=== PATIENT | female | born 1925 | race Caucasian/White ===

== ENCOUNTER 2016-03-26 10:16 | Outpatient (CLI) ==
--- NOTE | 2016-03-26 11:45 | DEXA ---
EXAM: Dual-Energy X-ray Absorptiometry (DXA) INDICATION: Osteoporosis. COMPARISON: 02/16/2011. FINDINGS: Lumbar Spine: BMD: 1.000 T-Score: -1.5 Z-Score: 1.1 Total left Hip: BMD: 0.631 T-Score: -3.0 Z-Score: -0.1 Total right Hip: BMD: 0.604 T-Score: -3.2 Z-Score: -0.3 Total mean Hip: BMD: 0.618 T-Score: -3.1 Z-Score: -0.2 Interval lumbar spine and total hip mean BMD change of 8.3% and -4.5% respectively. FRACTURE RISK: In this individual, the estimated 10-year risk for: Hip fracture is 8.3 % Major osteoporotic fracture is 21.2 %. IMPRESSION: Lumbar spine T-score consistent with osteopenia. Bilateral hip T-scores consistent with osteoporosis.
== END 2016-03-26 10:17 | disposition home or self-care (01) ==
LOC: RAD 10:16
PROVIDERS: ATTEND Family Medicine
DX: M81.0 Age-related osteoporosis without current pathological fracture (principal)

== ENCOUNTER → 2016-04-25 | Outpatient (POV) | LOC: OUTPT 00:01 | PROVIDERS: ATTEND Otolaryngology | DX: H91.90 Unspecified hearing loss, unspecified ear (principal) | CPT/HCPCS: 92557; 92567 ==

== ENCOUNTER 2016-06-28 19:34 | Inpatient (IN) ==
[2016-06-28 19:42] VITALS: BMI 19.5
[2016-06-28] MEDS ORDERED: LASIX IVP STA (19:55)
[2016-06-28] MEDS ORDERED: LOPRESSOR IVP STA (19:56)
[2016-06-28 20:10] LABS: BASOPHILS % (AUTO) 0.3 % (0.0-3.0); EOSINOPHILS # (AUTO) 0.6 K/ul (0.0-0.7); EOSINOPHILS % (AUTO) 6.1 % (0.0-7.0); HEMOGLOBIN 13.5 g/dl (12.0-16.0); IMMATURE GRANULOCYTE % (AUTO) 0.4 % (0.0-5.0); LYMPHOCYTES # (AUTO) 0.6 K/uL (0.60-3.4); LYMPHOCYTES % (AUTO) 6.6 (10.0-50.0); MEAN CORPUSCULAR HGB CONC 33.8 (31.8-35.4); MEAN CORPUSCULAR VOLUME 91.7 fl (81.0-99.0); MONOCYTES # (AUTO) 0.6 K/uL (0.4-2.0); MONOCYTES % (AUTO) 6.3 (0-10); NEUTROPHILS # (AUTO) 7.5 K/ul (2.0-6.9); NEUTROPHILS % (AUTO) 80.3; PLATELET COUNT 179 10^3/uL (140-440); RED BLOOD COUNT 4.36 10^6/ul (4.20-5.40); WHITE BLOOD COUNT 9.36 K/ul (4.6-10.2)
[2016-06-28 20:42] LABS: ABG PCO2 34.4 mmHg (35-45); ABG PH 7.396 (7.35-7.45)
[2016-06-28 20:43] LABS: ABG BASE EXCESS -4 (-2.0-2.0); ABG HCO3 21.1 (22.0-26.0); ABG TCO2 22 (22.0-28.0)
--- NOTE | 2016-06-28 20:45 | CT ---
Exam: CT thorax without contrast. Clinical indication: Shortness of breath. TECHNIQUE: Axial unenhanced CT images of the thorax were obtained followed by coronal and sagittal reformats. There are no prior studies available for comparison. Findings: There is moderate to severe underlying centrilobular emphysema. Within all lobes of the lungs there are areas of cylindrical bronchiectasis. Also within the cork tipper oinferior aspect of the right middle lobe there is some bronchiectasis associate with scarring and v olume loss. Within the posterior aspect of the right lower lobe, axial image number 35, there is a 0.7 x 0.5 cm noncalcified indeterminate pulmonary nodule. At the base of the left lung there is a 0.5 cm noncalc ified pulmonary nodule, best appreciated on axial image number 47. There is some heterogeneous irre gular opacities within the right lower lobe. The remainder the pulmonary parenchyma is unremarkable . There is no pleural abnormality. There are no enlarged axillary lymph nodes, by size criteria. There is a right paratracheal/precarinal lymph node measuring 1.3 cm in short axis dimension. There are no other definite enlarged mediastinal lymph nodes. There are calcified mediastinal lymph node s, consistent with old healed granulomatous disease. There are extensive coronary artery calcifications. There are punctate splenic calcifications consistent with old healed granulomatous disease. The rem ainder the visualized portions of the upper abdomen are unremarkable. There is severe thoracic kyphosis. The remainder of the visualized bony structures are unremarkable . Impression: 1. Moderate to severe centrilobular emphysema. 2. Areas of cylindrical bronchiectasis within all lobes bilaterally. 3. Two left lower lobe noncalcified indeterminate pulmonary nodules. According to the new 2017 Fle ischner Society criteria a follow-up CT in 6-12 months time is recommended to confirm stability. 4. Single mildly enlarged mediastinal lymph node, likely reactive. This can be followed up at the same time. 5. Coronary artery calcifications.
[2016-06-28 20:47] LABS: ALBUMIN 3.7 g/dL (3.4-5.0); ALBUMIN/GLOBULIN RATIO 1.12; ANION GAP 14.1; BILIRUBIN,TOTAL 0.44 mg/dL (0.00-1.20); CALCIUM 9.4 mg/dL (8.2-10.2); CREATININE 1.1 mg/dL (0.60-1.30); POTASSIUM 4.1 mmol/L (3.5-5.10)
[2016-06-28] MEDS ORDERED: XOPENEX 1.25 MG NEB STA (20:47)
[2016-06-28 21:06] LABS: TROPONIN I 0.023 ng/ml (0.0000-0.4000)
--- NOTE | 2016-06-28 21:10 | ED.PDOC ---
General ED Provider: Dr. KAVITHA BATEMAN-ER Chief Complaint: Shortness of Air Stated Complaint: cesilia been sob since this am.. Time Seen by Physician: 19:40 Mode of Arrival: Walk-In Information Source: Patient Exam Limitations: No limitations Primary Care Provider: GERMAINE ROBINS Nursing and Triage Documentation Reviewed and Agree: Yes Respiratory Complaint Exam - Shortness of Air Complaint/Exam Onset/Duration: 48hrs Symptoms Are: Still present Timing: Constant Initial Severity: Mild Current Severity: Moderate Character: Reports: Dyspnea at rest, Dyspnea on exertion Aggravating: Reports: Deep breaths Alleviating: Reports: Bronchodilators Associated Signs and Symptoms: Reports: Cough, Rapid breathing. Denies: Wheezing, Chest pain with cough, Chest pain, Fever, Chills, Diaphoresis, Nasal congestion, Dizziness, Calf pain, Calf swelling, Edema, Labored breathing, Decreased intake History of Healthcare-Acquired Pneumonia: No Cardiac Risk Factors: Reports: CAD Pseudomonas Risk Factors: Reports: None Tuberculosis Risk Factors: Reports: None Home Oxygen Use: No Recent Stress Test: No Recent Echo/LV Function: No Respiratory Distress: None Stridor Present: No Tracheal Deviation: No Subcutaneous Emphysema: No Accessory Muscle Use: Yes Diminished Breath Sounds: Yes Prolonged Expiratory Phase: No Unable to Speak Full Sentences: No Fatigue: No Leg Swelling: No Edmund's Sign Present: No Grunting Respirations: No Kussmaul Respirations: No Differential Diagnoses: Asthma, CHF, COPD Exacerbation, NC Quality Indicator For Non-Traumatic Chest Pain/Syncope: EKG Performed Review of Systems - Review Of Systems Constitutional: Reports: No symptoms Eyes: Reports: No symptoms Ears, Nose, Mouth, Throat: Reports: No symptoms Respiratory: Reports: Cough, Short of air Cardiac: Reports: No symptoms GI: Reports: No symptoms : Reports: No symptoms Musculoskeletal: Reports: No symptoms Skin: Reports: No symptoms Neurological: Reports: No symptoms Endocrine: Reports: No symptoms Hematologic/Lymphatic: Reports: No symptoms All Other Systems: Reviewed and Negative Past Medical History - Past Medical History Endocrine: Reports: Other Cardiovascular: Reports: Other Respiratory: Reports: Other Hematological: Reports: Other Gastrointestinal: Reports: Other Genitourinary: Reports: Other Neuro/Psych: Reports: Other Musculoskeletal: Reports: Other Cancer: Reports: Other Last Menstrual Period: unknown - Surgical History General Surgical History: Reports: Unknown - Family History Family History: Reports: Unknown - Social History Smoking Status: Former smoker Hx Substance Use: No Alcohol Screening: None Lives: With family Physical Exam - Physical Exam Appearance: Well-appearing, No pain distress, Well-nourished Eyes: RAKAN, EOMI, Conjunctiva clear ENT: Ears normal, Nose normal, Oropharynx normal Neck: Supple Respiratory: Airway patent, Breath sounds diminished Cardiovascular: RRR, Pulses normal, No rub, No murmur GI/: Soft, Nontender, No masses, Bowel sounds normal, No Organomegaly Musculoskeletal: Normal strength, ROM intact, No edema, No calf tenderness Skin: Warm, Dry, Normal color Neurological: Sensation intact, Motor intact, Reflexes intact, Cranial nerves intact, Alert, Oriented Psychiatric: Affect appropriate, Mood appropriate, Anxious Interpretation - Radiology Interpretation Radiology Interpretation By: Radiologist Radiology Results: Positive Exam Interpreted: CT Scan ("moder to severe emphysema") Re-Evaluation - Re-Evaluation Time of Re-Evaluation: 21:11 Status: Improved Vital Signs Stable: Yes Pain Level: 0 Appearance: NAD Lungs: Clear Skin: Warm and Dry Neuro: Alert and Oriented X3 CV: RRR Physician Notification - Case Discussed Physician Notified: d roliver Time of Notification: 21:16 Critical Care Note - Critical Care Note Total Time (mins): 0 Course - Course Hematology/Chemistry: 06/28/16 20:03 06/28/16 20:03 Orders, Labs, Meds: Lab Review 06/28/16 06/28/16 19:54 20:03 WBC 9.36 RBC 4.36 Hgb 13.5 Hct 40.0 MCV 91.7 MCH 31.0 MCHC 33.8 RDW Coeff of Angie 13.0 Plt Count 179 Immature Gran % (Auto) 0.4 Neut % (Auto) 80.3 Lymph % (Auto) 6.6 L [place] % (Auto) 6.3 Eos % (Auto) 6.1 Baso % (Auto) 0.3 Immature Gran # (Auto) 0.0 Neut # 7.5 H Lymph # 0.6 [place] # 0.6 Eos # 0.6 Baso # 0.0 D-Dimer (Manual) 860.06 Puncture Site Rrad O2 Saturation 90.0 L ABG pH 7.396 ABG pCO2 34.4 L ABG pO2 59.0 L* ABG HCO3 21.1 L ABG Total CO2 22 ABG Base Excess -4 L Vinayak Test + FiO2 % 21.0 Sodium 140 Potassium 4.1 Chloride 108 H Carbon Dioxide 22 L Anion Gap 14.1 BUN 33 H Creatinine 1.10 Estimated GFR (MDRD) 47.00 BUN/Creatinine Ratio 30.00 Glucose 106 Calcium 9.4 Total Bilirubin 0.44 AST 15 ALT 10 L Alkaline Phosphatase 55 Total Creatine Kinase 30 Troponin I 0.0230 B-Natriuretic Peptide 36 Total Protein 7.0 Albumin 3.7 Globulin 3.3 Albumin/Globulin Ratio 1.12 TSH 1.545 Orders Category Date Time Status ABG DRAW REQUEST Stat CARDIO 06/28/16 19:54 Completed EKG-(ED ONLY) Stat CARDIO 06/28/16 19:54 Completed NEBULIZER TREATMENT Stat CARDIO 06/28/16 20:47 Completed Bit Welder [ED A/C TECH APPLIED] .ONCE EMERGENCY 06/28/16 19:56 Active IV [ED IV/MEDIPORT/POWERPORT] .ONCE EMERGENCY 06/28/16 19:55 Active ABG Stat LAB 06/28/16 19:54 Completed B-TYPE NATRIURETIC PEPTIDE Stat LAB 06/28/16 20:03 Completed CBC W/ AUTO DIFF Stat LAB 06/28/16 20:03 Completed COMPREHENSIVE METABOLIC PANEL Stat LAB 06/28/16 20:03 Completed CREATINE KINASE Stat LAB 06/28/16 20:03 Completed D-DIMER Stat LAB 06/28/16 20:03 Completed THYROID STIMULATING HORMONE Stat LAB 06/28/16 20:03 Completed TROPONIN I Stat LAB 06/28/16 20:03 Completed 0.9 % Sodium Chloride [Saline Flush] MEDS 06/28/16 19:55 Ordered 1 syr IVF PRN PRN Furosemide [Lasix] MEDS 06/28/16 19:55 Discontinued 20 mg IVP ONCE STA Levalbuterol HCl [Xopenex 1.25 mg] MEDS 06/28/16 20:47 Discontinued 1 vial NEB ONCE STA Metoprolol Tartrate [Lopressor] MEDS 06/28/16 19:56 Discontinued 5 mg IVP ONCE STA CT CHEST W/O CONTRAST Stat RADS 06/28/16 19:55 Completed Medications Generic Name Dose Route Start Last Admin Trade Name Freq PRN Reason Stop Dose Admin Sodium Chloride 1 syr 06/28/16 19:55 06/28/16 20:45 Saline Flush IVF 1 syr PRN PRN Administration To flush IV Discontinued Medications Generic Name Dose Route Start Last Admin Trade Name Rj PRN Reason Stop Dose Admin Furosemide 20 mg 06/28/16 19:55 06/28/16 20:39 Lasix IVP 06/28/16 19:56 20 mg ONCE STA Administration Levalbuterol HCl 1 vial 06/28/16 20:47 06/28/16 20:50 Xopenex 1.25 Mg NEB 06/28/16 20:48 1 vial ONCE STA Administration Metoprolol Tartrate 5 mg 06/28/16 19:56 06/28/16 20:44 Lopressor IVP 06/28/16 19:57 5 mg ONCE STA Administration Vital Signs: Temp Pulse Resp BP Pulse Ox 06/28/16 19:36 98.9 F 82 20 169/81 H 88 L Departure - Departure Time of Disposition: 21:16 Disposition: ADMITTED INPATIENT Discharge Problem: Acute respiratory failure Qualifiers: Respiratory failure complication: hypoxia Qualifier Code: (J96.01) Acute respiratory failure with hypoxia Instructions: Dyspnea (ED) Condition: Good Pt referred to PMD for follow-up: Yes Allergies/Adverse Reactions: Allergies No Known Allergies Allergy (Unverified 09/08/14 11:05) Home Medications: Ambulatory Orders Amlodipine Besylate [Norvasc] 10 mg PO DAILY 09/13/14 Aspirin [Aspirin EC] 81 mg PO DAILY 09/13/14 Digoxin [Lanoxin] 125 mcg PO DAILY 09/13/14 Furosemide [Lasix] 20 mg PO DAILY 09/13/14 Levothyroxine Sodium [Synthroid] 75 mcg PO DAILY 09/13/14 Multivitamin 1 tab PO DAILY 09/13/14 Raloxifene HCl [Evista] 60 mg PO BEDTIME 09/13/14 Simvastatin [Zocor] 20 mg PO DAILY 09/13/14 Valsartan/Hydrochlorothiazide [Valsartan-Hctz 80-12.5 mg Tab] 80 mg PO BID 09/13 Calcium Carbonate/Vitamin D3 [Calcium 600 + Vit D Tablet] 1 each PO DAILY Disposition Discussed With: Patient, Family
[2016-06-28] MEDS ORDERED: SOLU-MEDROL 125 MG IVP STA (21:19)
[2016-06-28] MEDS ORDERED: NORVASC PO STA (22:46)
[2016-06-28] MEDS ORDERED: HYDROCHLOROTHIAZIDE PO STA (22:48)
[2016-06-28] MEDS ORDERED: DIOVAN PO STA (22:48)
[2016-06-28] MEDS: DUONEB NEB SCH (23:28)
[2016-06-29 04:47] LABS: BASOPHILS % (AUTO) 0.3 % (0.0-3.0); EOSINOPHILS # (AUTO) 0.1 K/ul (0.0-0.7); EOSINOPHILS % (AUTO) 0.9 % (0.0-7.0); HEMATOCRIT 35.9 % (37.0-47.0); HEMOGLOBIN 12.1 g/dl (12.0-16.0); IMMATURE GRANULOCYTE % (AUTO) 0.5 % (0.0-5.0); LYMPHOCYTES # (AUTO) 0.5 K/uL (0.60-3.4); LYMPHOCYTES % (AUTO) 7.3 (10.0-50.0); MEAN CORPUSCULAR HEMOGLOBIN 30.6 pg (27.0-31.0); MEAN CORPUSCULAR HGB CONC 33.7 (31.8-35.4); MEAN CORPUSCULAR VOLUME 90.7 fl (81.0-99.0); MONOCYTES # (AUTO) 0.1 K/uL (0.4-2.0); MONOCYTES % (AUTO) 1.1 (0-10); NEUTROPHILS # (AUTO) 5.9 K/ul (2.0-6.9); NEUTROPHILS % (AUTO) 89.9; PLATELET COUNT 184 10^3/uL (140-440); RED BLOOD COUNT 3.96 10^6/ul (4.20-5.40); WHITE BLOOD COUNT 6.56 K/ul (4.6-10.2)
[2016-06-29 05:13] LABS: ALBUMIN 3.1 g/dL (3.4-5.0); ALBUMIN/GLOBULIN RATIO 0.97; ANION GAP 12.4; BILIRUBIN,TOTAL 0.31 mg/dL (0.00-1.20); BUN/CREATININE RATIO 30.17; CALCIUM 8.9 mg/dL (8.2-10.2); CREATININE 1.16 mg/dL (0.60-1.30); POTASSIUM 4.4 mmol/L (3.5-5.10); TOTAL PROTEIN 6.3 g/dL (5.8-8.1)
[2016-06-29] MEDS: SOLU-MEDROL 40 MG IVP SCH ×3 (05:22→21:30)
[2016-06-29] MEDS: DUONEB NEB SCH ×4 (05:22→23:12)
[2016-06-29] MEDS: SYNTHROID PO SCH (05:37)
[2016-06-29] MEDS: LASIX TAB PO SCH (05:38)
[2016-06-29] MEDS: DIOVAN PO SCH ×2 (08:25→20:27)
[2016-06-29] MEDS: ASPIRIN EC PO SCH (08:25)
[2016-06-29] MEDS: HYDROCHLOROTHIAZIDE PO SCH ×2 (08:25→20:30)
[2016-06-29] MEDS: LANOXIN PO SCH (08:25)
[2016-06-29] MEDS: CALCIUM 500 + VIT D 200 MG TABLET PO SCH (08:25)
[2016-06-29] MEDS: ROCEPHIN 1 GM in SODIUM CHLORIDE 50 ML IV SCH (08:26)
[2016-06-29] MEDS: ZOCOR PO SCH (08:26)
[2016-06-29] MEDS: LOVENOX SUBCUT SCH (08:28)
[2016-06-29] MEDS ORDERED: LASIX TAB PO SCH (09:00)
[2016-06-29] MEDS ORDERED: HYDROCHLOROTHIAZIDE PO SCH (09:00)
[2016-06-29] MEDS ORDERED: VALSARTAN PO SCH (09:00)
[2016-06-29] MEDS ORDERED: NON-FORMULARY MEDICATION (Simvastatin [Zocor] 20 MG) PO SCH ×22 (09:00)
[2016-06-29] MEDS ORDERED: NON-FORMULARY MEDICATION (Amlodipine Besylate [Norvasc] 10 MG) PO SCH ×44 (09:00→21:00)
[2016-06-29] MEDS ORDERED: [UNRECOGNIZED DRUG - OTHER] PO SCH (09:00)
[2016-06-29] MEDS ORDERED: SYNTHROID PO SCH (09:00)
[2016-06-29] MEDS ORDERED: NON-FORMULARY MEDICATION (Calcium Carbonate/Vitamin D3 [Calcium 600 + Vit D Tablet] 1 EACH PO SCH ×22 (09:00)
[2016-06-29] MEDS ORDERED: LOVENOX SUBCUT SCH (09:00)
--- NOTE | 2016-06-29 11:25 | US ---
EXAM: Bilateral lower extremity venous doppler. HISTORY: Bilateral leg swelling. COMPARISON: None available. TECHNIQUE: Multiple grayscale and color doppler images were obtained. FINDINGS: There is normal flow, compressibility and augmentation of flow within the right and left common femoral, greater saphenous, profunda, femoral, popliteal, posterior tibial, anterior tibial a nd peroneal veins. IMPRESSION: No evidence for right or left lower extremity deep vein thrombosis at the levels examined.
--- NOTE | 2016-06-29 13:17 | NM ---
EXAM: Ventilation-perfusion lung scan HISTORY: Dyspnea COMPARISON: Bilateral lower extremity venous Doppler ultrasound of today shows no evidence of deep v enous thrombosis. Chest CT of yesterday shows moderate to severe centrilobular emphysema. TECHNIQUE: Patient was injected 5.3 mCi of technetium 99m labeled MAA intravenously. The patient wa s also given 32.1 mCi of technetium 99m DTPA aerosol for ventilation imaging. FINDINGS: No segmental or nonsegmental perfusion defect is identified. The isotope distribution is s omewhat inhomogeneous particularly in the upper lobes. Ventilation images demonstrate very heteroge neous distribution of the aerosol in both lungs. IMPRESSION: Chronic obstructive pulmonary disease. Low probability of pulmonary embolism.
--- NOTE | 2016-06-29 13:17 | CONS ---
DATE OF CONSULTATION: 06/29/16 REASON FOR CONSULTATION: Dyspnea, question cardiac cause HISTORY OF PRESENT ILLNESS: This 89 year old WHITE/ F was hospitalized 06/28/16. The patient is hospitalized with shortness of breath, respiratory failure, mild cough and congestion. The patient presented to the ER with complaints of shortness of air for 24 hours. Dyspnea at rest and with exertion reported Cough reported. No chest pain. The patient is known to me and has been followed by me for several years for heart condition. REVIEW OF SYSTEMS: CONSTITUTIONAL: No night sweats. No fatigue, malaise, lethargy. No fever or chills. HEENT: Eyes: No visual changes. No eye pain. No eye discharge. ENT: No runny nose. No epistaxis. No sinus pain. No sore throat. No odynophagia. No ear pain. No congestion. RESPIRATORY: Mild cough and congestion. No hemoptysis. No PND, no orthopnea. CARDIOVASCULAR: No angina symptoms. No CHF symptoms. No atypical chest pain for CAD. No palpitations. Shortness of breath on minimal exertion. GASTROINTESTINAL: No abdominal pain. No nausea or vomiting. No diarrhea or constipation. No hematemesis. No hematochezia. GENITOURINARY: Recent kidney infection. No urgency. No frequency. No dysuria. No hematuria. No obstructive symptoms. No discharge. No pain. No significant abnormal bleeding. MUSCULOSKELETAL: Wrist and knee pain at times. NEUROLOGICAL: No headache. No neck pain. No syncope. No seizures. Occasional dizziness. PSYCHIATRIC: Not anxious. No depression. No suicidal thoughts. No homicidal thoughts. SKIN: No rash. No lesions. No wounds. ENDOCRINE: No unexplained weight loss. No weight gain. HEMATOLOGIC/LYMPHATIC: No anemia. No purpura. No petechiae. No prolonged or excessive bleeding. No palpable lymph nodes. MEDICATIONS: (HOME) 1. Valsartan/Hydrochlorothiazide 80 mg p.o. b.i.d. 2. Simvastatin 20 mg p.o. daily 3. Raloxifene (Evista) 60 mg p.o. bedtime 4. Multivitamin one tab p.o. daily 5. Levothyroxine (Synthroid) 75 mcg p.o. q.d a.c. 6. Furosemide (Lasix) 20 mg p.o. daily 7. Digoxin 125 mcg p.o. daily 8. Aspirin 81 mg p.o. daily 9. Amlodipine 10 mg p.o. bedtime 10. Calcium Carbonate/Vitamin D3 one each p.o. daily ALLERGIES: NKDA PAST MEDICAL HISTORY: 1. History of [place] 2. Former smoker 3. Asthma 4. COPD 5. CHF 6. Recent history of kidney infection, completed antibiotic Saturday 7. Hypertension 8. Hypothyroidism PAST SURGICAL HISTORY: 1. Eye surgery with bilateral implants 2. Cardiac stents times two 3. Appendectomy 4. Right knee fracture (fall) 5. Left wrist fracture, repair 5. Left breast lumpectomy SOCIAL/PERSONAL/FAMILY HISTORY: The patient is . Nonsmoker - stopped 8 years ago. Two grown children with good family support. No alcohol use. PHYSICAL EXAMINATION: GENERAL: The patient is lying in bed in no distress. VITAL SIGNS: Temperature 97.5 F, Pulse 82, Respiratory Rate 24, BP 125/63, Pulse Ox 95% HEENT: Head normocephalic, atraumatic. Eyes: Extraocular muscles are intact. Pupils are equal, round and reactive to light and accommodation. Ears: No lesions. Nose appeared normal. Throat: No exudate or erythema. NECK: Supple. No JVD, no carotid bruit. No lymphadenopathy or thyromegaly. LUNGS: Decreased breath sounds. Clear to auscultation. Percussion note normal. Chest symmetrical. HEART: S1, S2, no S3. No murmurs. No cyanosis or clubbing. No ascites. Pulses: Dorsalis pedis and posterior tibial pulses +1 bilaterally. ABDOMEN: Soft. Nontender. Bowel sounds active. No CVA tenderness. No mass felt. EXTREMITIES: No edema. Full range of motion of all extremities, equal. NEUROLOGIC: No focal deficit. Cranial nerves II through XII are grossly intact. No headache, no double vision or headache. SKIN: Warm and dry. Intact. Turgor - normal. LYMPHATIC: No palpable lymph nodes/no lymphedema. MUSCULOSKELETAL: Normal joints with no swelling. Muscle tone is normal. LABS: 06/29/16 04:24: WBC 6.56, RBC 3.96 L, Hgb 12.1, Hct 35.9 L, MCV 90.7, MCH 30.6, MCHC 33.7, RDW Coeff of Angie 12.9, Plt Count 184, Immature Gran % (Auto) 0.5, Neut % (Auto) 89.9, Lymph % (Auto) 7.3 L, [place] % (Auto) 1.1, Eos % (Auto) 0.9, Baso % (Auto) 0.3, Immature Gran # (Auto) 0.0, Neut # 5.9, Lymph # 0.5 L, [place] # 0.1 L, Eos # 0.1, Baso # 0.0, Sodium 138, Potassium 4.4, Chloride 105, Carbon Dioxide 25, Anion Gap 12.4, BUN 35 H, Creatinine 1.16, Estimated GFR (MDRD) 44.00, BUN/Creatinine Ratio 30.17, Glucose 196 H D, Calcium 8.9, Total Bilirubin 0.31, AST 12 L, ALT 10 L, Alkaline Phosphatase 47 L, Total Protein 6.3 , Albumin 3.1 L, Globulin 3.2, Albumin/Globulin Ratio 0.97 ASSESSMENT: 1. Acute respiratory failure 2. Acute bronchitis/COPD 3. CAD 4. Dyslipidemia. . RECOMMENDATIONS: 1. Echocardiogram to evaluate LV function 2. PFT 3. Telemetry 4. Serial cardiac markers 5. Antibiotics/steroids 6. Nebs treatment 7. Agreed with management. 8. BNP is normal. D. dimer is elevated so will do VQ scan. EDUCATION CARRIED OUT ABOUT: All diagnoses discussed with the patient and son in the room. Condition is stable. Thanks for the referral. Will follow. SCRIBED BY: GENI ROMERO Route Sales Driver scribed while in presence of service performed by Dr. NA TAMAYO on 06/29/16 ([id number]) [facility] SYSTEMBuffy
[2016-06-29] MEDS ORDERED: RALOXIFENE HCL 60 MG PO SCH ×22 (21:00)
[2016-06-29] MEDS ORDERED: NORVASC PO SCH (21:00)
[2016-06-29 22:33] LABS: BILIRUBIN,URINE Negative (NEGATIVE); KETONES,URINE Negative (NEGATIVE); LEUKOCYTE ESTERASE ,URINE 3+ (NEGATIVE); NITRITE,URINE Negative (NEGATIVE); PROTEIN,URINE Negative (NEGATIVE); URINE, BLOOD Negative (NEGATIVE)
[2016-06-29 22:35] LABS: ADD URINE MICROSCOPIC YES
[2016-06-29 22:36] LABS: BACTERIA,URINE TRACE (NOT PRESENT)
[2016-06-29] MEDS ORDERED: ZANTAC ONE (23:10)
[2016-06-29] MEDS ORDERED: ZANTAC PO STA (23:11)
[2016-06-30 04:45] LABS: BASOPHILS % (AUTO) 0.2 % (0.0-3.0); EOSINOPHILS % (AUTO) 0.1 % (0.0-7.0); HEMATOCRIT 33.8 % (37.0-47.0); HEMOGLOBIN 11.3 g/dl (12.0-16.0); IMMATURE GRANULOCYTE % (AUTO) 0.5 % (0.0-5.0); LYMPHOCYTES # (AUTO) 0.7 K/uL (0.60-3.4); LYMPHOCYTES % (AUTO) 4.8 (10.0-50.0); MEAN CORPUSCULAR HEMOGLOBIN 30.7 pg (27.0-31.0); MEAN CORPUSCULAR HGB CONC 33.4 (31.8-35.4); MEAN CORPUSCULAR VOLUME 91.8 fl (81.0-99.0); MONOCYTES # (AUTO) 0.4 K/uL (0.4-2.0); MONOCYTES % (AUTO) 2.7 (0-10); NEUTROPHILS # (AUTO) 13.6 K/ul (2.0-6.9); NEUTROPHILS % (AUTO) 91.7; PLATELET COUNT 184 10^3/uL (140-440); RED BLOOD COUNT 3.68 10^6/ul (4.20-5.40)
[2016-06-30 04:58] LABS: ALBUMIN 2.8 g/dL (3.4-5.0); ALBUMIN/GLOBULIN RATIO 0.97; ANION GAP 11.1; BILIRUBIN,TOTAL 0.18 mg/dL (0.00-1.20); BUN/CREATININE RATIO 38.12; CALCIUM 8.5 mg/dL (8.2-10.2); CREATININE 1.39 mg/dL (0.60-1.30); POTASSIUM 5.1 mmol/L (3.5-5.10); TOTAL PROTEIN 5.7 g/dL (5.8-8.1)
[2016-06-30] MEDS: DUONEB NEB SCH (05:18)
[2016-06-30] MEDS: LASIX TAB PO SCH (05:43)
[2016-06-30] MEDS: SYNTHROID PO SCH (05:43)
[2016-06-30] MEDS: SOLU-MEDROL 40 MG IVP SCH (05:44)
[2016-06-30 06:13] VITALS: BP 112/58; TEMP 97.1
[2016-06-30] MEDS: ROCEPHIN 1 GM in SODIUM CHLORIDE 50 ML IV SCH (08:55)
[2016-06-30] MEDS: ASPIRIN EC PO SCH (08:55)
[2016-06-30] MEDS: CALCIUM 500 + VIT D 200 MG TABLET PO SCH (08:55)
[2016-06-30] MEDS: LANOXIN PO SCH (08:55)
[2016-06-30] MEDS: LOVENOX SUBCUT SCH (08:55)
[2016-06-30] MEDS: DIOVAN PO SCH (08:55)
[2016-06-30] MEDS: ZOCOR PO SCH (08:56)
[2016-06-30] MEDS: HYDROCHLOROTHIAZIDE PO SCH (08:57)
--- NOTE | 2016-07-02 09:16 | ECHO2D ---
Date of Exam: 06/30/16 Ordering Physician: GERMAINE ROBINS Reason for Echo: SOB, RESPIRATORY FAILURE, HYPERTENSION, CAD, CARDIAC STENTS M-Mode Normal Adult Results LV Dimensions Normal Adult Results AoV Opening excursions >1.6 >1.6 LVEDD-base- 3.5-5.8 4.0 Ao root dimensions 2.0-3.7 3.1 LVESD-base- 3.1-4.6 L. Atrium dimensions 1.9-3.8 3.7 Post. Wall thickness 0.8-1.1 1.1 IV septum (thickness) 0.7-1.2 1.1 Post. Wall excursion 0.72-1.3 NORMAL Septal motion NORMAL Systolic motion R. Ventricular cavity 1.5-2.0 NORMAL LVEF 60% 63% Paradoxical septal wall motion NORMAL 2-D :2-D M Mode Echocardiogram was performed using apical four chamber and left parasternal long and short axis views. Mitral, tricuspid and aortic valves appear to be normal. Contractility of the left ventricle seems to be normal, so is the cavity size. Left atrial cavity size and aortic root appear to be normal. There is no pericardial effusion. There is no thrombus noted in the left ventricular or left aortic cavity. No mitral valve prolapse noted. M-MODE: MV: NORMAL AV: NORMAL TV: NORMAL PV: CHAMBER SIZE: NORMAL WALL MOTION: NORMAL PERICARDIUM: NORMAL INTERPRETATION: 1. NORMAL 2 "D" "M" MODE ECHO MTDD
--- NOTE | 2016-07-02 09:17 | HP ---
SOURCE: The source of this information is prior knowledge of the patient, review of her office records, her current chart as well as discussion with she and individuals mentioned; all considered reliable. PATIENT PROFILE: Ms. Rosario is an 89-year-old female resident of [place]. She was cooperative. CHIEF COMPLAINT: "I was a little short of breath." BRIEF HISTORY OF PRESENT ILLNESS: Ms. Rosario has no COPD. She is a smoker. On she contacted the office about dysuria; she ended up growing E. coli greater than 10 to the fifth and was sensitive to Macrobid and she was treated for 7 days. Those symptoms improved. Because of a week of increasing cough and shortness of breath, she presented to the ER. She was found to be hemodynamically stable with a negative chest x-ray except for emphysema. She had a white count of 9, hemoglobin 13.5. Blood gas - pH 7.39, pc02 34, p02 59 with 90% saturation on room air with a bicarb of 22. She had a negative troponin, a BNP of only 36, a D. dimer of 860 so she had a VQ scan done that was negative. She was felt to maybe be in mild COPD exacerbation and was admitted with steroids and nebulized bronchodilators and Rocephin. When I saw her the next day she thought she was actually breathing back to normal. PAST HISTORY: CHILDHOOD: Unremarkable. ALLERGIES/INTOLERANCE: CODEINE, LEVAQUIN 750 (NERVOUS AND SHAKY), SPIRIVA ( SORE MOUTH), XANAX (NERVOUSNESS), ZESTRIL (COUGH) CURRENT MEDICATIONS: 1. Diovan HCT 80/12.5 one by mouth twice a day 2. Zocor 20 mg once a day 3. Evista 60 mg once a day 4. Multivitamin once a day 5. Synthroid 75 once a day 6. Lasix 20 mg once a day 7. Lanoxin 125 mcg once a day 8. Aspirin 81 mg once a day 9. Norvasc 10 mg once a day 10. Calcium/Vitamin D 600 mg once a day HOSPITALIZATIONS/SURGERIES/PROCEDURES: She is 2, Para 2, AB 0. She had a normal colonoscopy at Dr. Yvrose Gonzalez, 08/30/04; colonoscopy, Dr. Yvrose Gonzalez, 09/13/14; appendectomy, 1964 ; left breast cyst, 1975; cyst removed from back 1975; angioplasty and stent, Dr. Mejias, [facility], 10/03/1999; right carotid endarterectomy, Mehrdad Mitchell, [facility], 09/06/05. FAMILY HISTORY: Diabetes maternal grandmother, CVA in two sisters, heart disease in maternal grandmother and mother. HABITS: Smoker, age 26 less than one pack per day, stopping 2010; on and off smoking since. 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 REVIEW OF SYSTEMS: GENERAL: Weight has been stable. She denies any recent injuries. INTEGUMENT: She denies wounds or rashes. HEENT: Minor nasal congestion. No sore throat. NECK: No mass or pain. CHEST: No hemoptysis. CARDIOVASCULAR: No exertional chest pain or ankle edema GI: No nausea, vomiting or diarrhea. : No dysuria or hematuria now. MUSCULOSKELETAL/NEUROLOGIC: Occasional joint soreness, nothing red or swollen. No asymmetry facies or extremities and no slurred speech. PSYCHIATRIC: Denies stress, anxiety, depression of any magnitude. PHYSICAL EXAMINATION: VITALS: Temperature 98.1, pulse 108, BP 126/57, respirations 20; she has been afebrile since here. Height 5'2", weight 107. GENERAL: Younger than stated age white female in no obvious distress. INTEGUMENT: Eyegrounds are pink, nonicteric sclerae. Mucous membranes are moist. No ankle edema. HEENT: Facial symmetry. Pupils equal, round, extraocular movements intact. Tongue moist and midline. No oral exudate or ulcerations, posterior pharyngeal redness or swelling. NECK: No mass or thyroid; supple. CHEST: Diminished; slightly barreled. No wheeze. No dullness to percussion. CARDIOVASCULAR: Regular with no murmur and distal pulses are weak but present. No carotid bruits. GI: Soft. No rebound, guarding, mass or tenderness. MUSCULOSKELETAL/NEUROLOGIC: No red swollen joints; moves all four quadrants with ease. Neurologic: Facial symmetry; speech is clear; solar electric practitioner are equal. PSYCHIATRIC: Pleasant, personable with intact short and long-term memory. ASSESSMENT/PROBLEM LIST: 0. 89-year-old white female of advanced age. 1. Allergies/intolerances - see above. 2. Procedural history - see above. 3. Family history - see above. 4. 2, Para 2, AB 0. 5. Menopausal. 6. Coronary artery disease - post angioplasty and stent. 7. Carotid atherosclerosis. 8. Atherosclerosis - general. 9. COPD. 10. . 11. Anxiety - chronic. 12. Chronic kidney disease - Stage 3. 13. Congestive heart failure - diastolic changes on echo. 14. Cortical atrophy and atherosclerosis. 15. Hypertension. 16. Hypothyroidism. 17. Osteoporosis. 18. Macrocytosis. 19. Hyperlipidemia. 20. Chronic hoarseness - benign on ENT. REASON FOR ADMISSION: # Shortness of breath # COPD exacerbation # Elevated D. dimer with negative scanning for PE PLAN: 1. Continue same approach but she looks amenable to a very quick rapid wean and she is even wanting to go home tomorrow if she is feeling better at that time. FREDIS
--- NOTE | 2016-07-05 11:31 | CONS ---
DATE OF SERVICE: 06/30/16 CONSULT FOLLOWUP SUBJECTIVE: The patient is a 89 year old female who hospitalized with acute respiratory failure. The patient's condition has improved remarkably. The patient says that she is feeling a lot better. She is breathing better and she is not fighting for hair anymore. She is up and about. REVIEW OF SYSTEMS: CONSTITUTIONAL: No night sweats. No fatigue, malaise, lethargy. No fever or chills. HEENT: Eyes: No visual changes. No eye pain. No eye discharge. ENT: No runny nose. No epistaxis. No sinus pain. No sore throat. No odynophagia. No ear pain. No congestion. RESPIRATORY: No cough, no congestion. No hemoptysis. CARDIOVASCULAR: No angina symptoms. No CHF symptoms. No atypical chest pain for CAD. No palpitations. No shortness of breath. GASTROINTESTINAL: No abdominal pain. No nausea or vomiting. No diarrhea or constipation. No hematemesis. No hematochezia. GENITOURINARY: No urgency. No frequency. No dysuria. No hematuria. No obstructive symptoms. No discharge. No pain. No significant abnormal bleeding. MUSCULOSKELETAL: No musculoskeletal pain. No joint swelling. No arthritis. NEUROLOGICAL: No headache. No neck pain. No syncope. No seizures. No dizziness. PSYCHIATRIC: Not anxious. No depression. No suicidal thoughts. No homicidal thoughts. SKIN: No rash. No lesions. No wounds. ENDOCRINE: No unexplained weight loss. No weight gain. HEMATOLOGIC/LYMPHATIC: No anemia. No purpura. No petechiae. No prolonged or excessive bleeding. No palpable lymph nodes. PHYSICAL EXAMINATION: GENERAL: The patient is oriented to time, place and person. VITAL SIGNS: Temperature 97.1, pulse 75, respirator rate 17, blood pressure 112/ 58 and pulse ox 95%. HEENT: Head normocephalic, atraumatic. Eyes: Extraocular muscles are intact. Pupils are equal, round and reactive to light and accommodation. Ears: No lesions. Nose appeared normal. Throat: No exudate or erythema. NECK: Supple. No JVD, no carotid bruit. No lymphadenopathy or thyromegaly. LUNGS: Decreased breath sounds but clear to auscultation. Percussion note normal. Chest symmetrical. HEART: S1, S2, no S3. No murmurs. No cyanosis or clubbing. No ascites. Pulses: Dorsalis pedis and posterior tibial pulses +1 to +2 both sides. ABDOMEN: Soft. Nontender. Bowel sounds active. No CVA tenderness. No mass felt. EXTREMITIES: No edema. Full range of motion of all extremities, equal. NEUROLOGIC: No focal deficit. Cranial nerves II through XII are grossly intact. No headache, no double vision or headache. SKIN: Not dry. Intact. Turgor - normal. LYMPHATIC: No palpable lymph nodes/no lymphedema. MUSCULOSKELETAL: Normal joints with no swelling. Muscle tone is normal. LABS: Hgb 11.3, hct 33, WBC 14,000 normal differential, creatinine 1.3, BUN 53, potassium 5.1 and glucose 164. ASSESSMENT: 1. Acute respiratory failure seems to have resolved. 2. Chronic lung disease 3. Chronic bronchitis 4. Coronary artery disease 5. Dyslipidemia RECOMMENDATIONS: 1. Continue Prednisone on tapering dose 2. Continue antibiotics 3. Patient is advised to walk 4. Cardiac rehab discussed 5. Patient will have three step test to see whether she is going to have hypoxemia with exertion and needs oxygen at home. 6. PFT results pending 7. Echo showed normal LV Contractility and normal LV size 8. The patient is advised to drink fluids and also to cut down on either hydrochlorothiazide or Lasix 9. Abnormal glucose level could be steroids. 10.The patient does not have signs of symptoms of CHF 11.BNP level is 36 12.Cardiovascular status stable MTDD
--- NOTE | 2016-07-05 11:32 | PN ---
The patient was seen on Consultation 06/29/16: Level 5 06/30/16: Intermediate MTDD
--- NOTE | 2016-07-06 14:01 | DS ---
PATIENT PROFILE: Ms. Rosario is an 89-year-old female resident of [place]. She was cooperative. CHIEF COMPLAINT: "I was a little short of breath." BRIEF HISTORY OF PRESENT ILLNESS: Ms. Rosario has no COPD. She is a smoker. On she contacted the office about dysuria; she ended up growing E. coli greater than 10 to the fifth and was sensitive to Macrobid and she was treated for 7 days. Those symptoms improved. Because of a week of increasing cough and shortness of breath, she presented to the ER. She was found to be hemodynamically stable with a negative chest x-ray except for emphysema. She had a white count of 9, hemoglobin 13.5. Blood gas - pH 7.39, pc02 34, p02 59 with 90% saturation on room air with a bicarb of 22. She had a negative troponin, a BNP of only 36, a D. dimer of 860 so she had a VQ scan done that was negative. She was felt to maybe be in mild COPD exacerbation and was admitted with steroids and nebulized bronchodilators and Rocephin. When I saw her the next day she thought she was actually breathing back to normal. PAST HISTORY: CHILDHOOD: Unremarkable. ALLERGIES/INTOLERANCE: CODEINE, LEVAQUIN 750 (NERVOUS AND SHAKY), SPIRIVA ( SORE MOUTH), XANAX (NERVOUSNESS), ZESTRIL (COUGH) CURRENT MEDICATIONS: 1. Diovan HCT 80/12.5 one by mouth twice a day 2. Zocor 20 mg once a day 3. Evista 60 mg once a day 4. Multivitamin once a day 5. Synthroid 75 once a day 6. Lasix 20 mg once a day 7. Lanoxin 125 mcg once a day 8. Aspirin 81 mg once a day 9. Norvasc 10 mg once a day 10. Calcium/Vitamin D 600 mg once a day HOSPITALIZATIONS/SURGERIES/PROCEDURES: She is 2, Para 2, AB 0. She had a normal colonoscopy at [facility], Dr. Frances, 08/30/04; colonoscopy, Dr. Yvrose Gonzalez, 09/13/14; appendectomy, 1964 ; left breast cyst, 1975; cyst removed from back 1975; angioplasty and stent, Dr. Mejias, [facility], 10/03/1999; [facility] FAMILY HISTORY: Diabetes maternal grandmother, CVA in two sisters, heart disease in maternal grandmother and mother. HABITS: Smoker, age 26 less than one pack per day, stopping 2010; on and off smoking since. 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 REVIEW OF SYSTEMS: GENERAL: Weight has been stable. She denies any recent injuries. INTEGUMENT: She denies wounds or rashes. HEENT: Minor nasal congestion. No sore throat. NECK: No mass or pain. CHEST: No hemoptysis. CARDIOVASCULAR: No exertional chest pain or ankle edema GI: No nausea, vomiting or diarrhea. : No dysuria or hematuria now. MUSCULOSKELETAL/NEUROLOGIC: Occasional joint soreness, nothing red or swollen. No asymmetry facies or extremities and no slurred speech. PSYCHIATRIC: Denies stress, anxiety, depression of any magnitude. PHYSICAL EXAMINATION: VITALS: Temperature 98.1, pulse 108, BP 126/57, respirations 20; she has been afebrile since here. Height 5'2", weight 107. GENERAL: Younger than stated age white female in no obvious distress. INTEGUMENT: Eyegrounds are pink, nonicteric sclerae. Mucous membranes are moist. No ankle edema. HEENT: Facial symmetry. Pupils equal, round, extraocular movements intact. Tongue moist and midline. No oral exudate or ulcerations, posterior pharyngeal redness or swelling. NECK: No mass or thyroid; supple. CHEST: Diminished; slightly barreled. No wheeze. No dullness to percussion. CARDIOVASCULAR: Regular with no murmur and distal pulses are weak but present. No carotid bruits. GI: Soft. No rebound, guarding, mass or tenderness. MUSCULOSKELETAL/NEUROLOGIC: No red swollen joints; moves all four quadrants with ease. Neurologic: Facial symmetry; speech is clear; import export clerk are equal. PSYCHIATRIC: Pleasant, personable with intact short and long-term memory. ASSESSMENT/PROBLEM LIST: 0. 89-year-old white female of advanced age. 1. Allergies/intolerances - see above. 2. Procedural history - see above. 3. Family history - see above. 4. 2, Para 2, AB 0. 5. Menopausal. 6. Coronary artery disease - post angioplasty and stent. 7. Carotid atherosclerosis. 8. Atherosclerosis - general. 9. COPD. 10. . 11. Anxiety - chronic. 12. Chronic kidney disease - Stage 3. 13. Congestive heart failure - diastolic changes on echo. 14. Cortical atrophy and atherosclerosis. 15. Hypertension. 16. Hypothyroidism. 17. Osteoporosis. 18. Macrocytosis. 19. Hyperlipidemia. 20. Chronic hoarseness - benign on ENT. REASON FOR ADMISSION: # Shortness of breath # COPD exacerbation # Elevated D. dimer with negative scanning for PE HOSPITAL COURSE: She was treated with IV steroids, nebulized bronchodilators (Duoneb) and Rocephin. She never ran a temperature; she was transitioned on discharge to Levaquin 250. She rapidly improved any shortness of breath; she was weaned to Medrol and ProAir at discharge. She had an echocardiogram and she verbalized that it was "good" (typed report pending). Her blood sugar did elevate with the steroids but in a level that could be tolerated. Her white count started at 9.36 and with steroids went to 14.8. Her hemoglobin started at 13.5 and with fluids went to 11.3. There was no sign of bleeding. Again, her D. dimer was 680 but lower extremity scan for clot and VQ scan were unremarkable. Her chemistries started with a GFR of 47; it dropped to 36 but she was drinking fluids and we will watch that closely. I anticipate medicine changes in the office with her Diovan HCTZ. Again, the highest blood sugar was 196. A urinalysis was rechecked as she was pending that through the office and it had 10 to 20 epithileals and was felt to be enough of a contaminant to not be very accurate; she wasn't having any dysuria. She was checked for oxygen needs at home and not felt to need it. She was discharged to close outpatient followup. She did have one 02 sat while here on admission at 88 on 2L substantiating her shortness of breath and adding a diagnosis of acute respiratory failure to the admission problem list. DISCHARGE ASSESSMENT/PROBLEM LIST (CHANGED FROM ADMISSION): # Shortness of breath # Acute respiratory failure # COPD # COPD exacerbation - probable # Steroid induced hyperglycemia # Acute renal insufficiency PLAN: 1. Discharge 2. Medications: a) Same as admit b) Omnicef 300 mg two a day #14, no refill c) ProAir #1 two puffs q.i.d. #1, no refill d) Medrol Dosepak 3. Diet a) AHA 4. Activity a) Gradually increase as able 5. Followup in the office in two days PROGNOSIS: Good CONDITION: Stable, improved MTDD
== END 2016-06-30 10:20 | disposition home or self-care (01) | DRG 189 ==
LOC: ED 19:34 → MEDSURG B 21:26
PROVIDERS: ADMIT Family Medicine; ATTEND Family Medicine
DX: J96.01 Acute respiratory failure with hypoxia (principal); J44.1 Chronic obstructive pulmonary disease with (acute) exacerbation; R06.02 Shortness of breath; R73.9 Hyperglycemia, unspecified; N28.9 Disorder of kidney and ureter, unspecified; R79.1 Abnormal coagulation profile; R05 Cough; I25.10 Atherosclerotic heart disease of native coronary artery without angina pectoris; E78.5 Hyperlipidemia, unspecified; I25.2 Old myocardial infarction; F17.200 Nicotine dependence, unspecified, uncomplicated; Z79.899 Other long term (current) drug therapy
CPT/HCPCS: 36415; 80053; 81001; 82550; 82803; 83880; 84443; 84484; 85025; 85379; 87086; 93005; 93010; 94640; 94761; 96374; 96375; 99284

== ENCOUNTER 2016-09-20 09:31 | Outpatient (CLI) ==
--- NOTE | 2016-09-20 10:17 | US ---
Exam: Garner-scale and color Doppler ultrasonographic evaluation of the kidneys and urinary bladder. Comparison: None available. Reason for exam: Chronic kidney disease. FINDINGS: The right kidney measures approximately 7.95 x 2.93 x 3.08 cm with slightly prominent pel viectasis. There is normal appearing echotexture without nephrolithiasis. The left kidney measures approximately 8.77 x 3.37 x 3.14 cm with mildly prominent pelviectasis. Th ere is normal appearing echotexture without nephrolithiasis. There is a small amount of debris seen within the urinary bladder. The ureteral jets were not seen. Impression: 1. Mild pelviectasis is seen in both kidneys without evidence of nephrolithiasis. 2. A small amount of debris is seen within the urinary bladder. Recommend correlation with urinaly sis.
== END 2016-09-20 09:32 | disposition home or self-care (01) ==
LOC: RAD 09:31
PROVIDERS: ATTEND Family Medicine
DX: N18.3 Chronic kidney disease, stage 3 (moderate) (principal)
CPT/HCPCS: 76770